=== PATIENT | female | born 1970 | race Caucasian/White ===

== ENCOUNTER → 2016-05-20 | Outpatient (CLI) | payer MEDICAID ==
[~2016-05-20] MED LIST: NS 100 ML IV 100 ML IV ONE
--- NOTE | 2016-05-20 16:51 | CT ---
HISTORY: Peripheral arterial disease Study: CT angiography with bilateral lower extremity runoff with and without contrast Comparison: None Technique: Multiple axial images of the abdomen and pelvis were obtained from the mesenteric vasculature to the plantar surface of the feet both prior to and after the administration of IV contrast. 3D reconstr uctions were performed utilizing radial maximum intensity projection imaging. Dose reduction technEntigo ues including Automated Exposure Control (AEC) and adjustment of mA and kV were utilized. Findings: The visualized solid organs and bowel are unremarkable. The gallbladder is removed. Normal appendix. No free air or free fluid. The urinary bladder is unremarkable. The soft tissues are intact. Abdominal aorta: There is multifocal plaque within the aortic wall without significant stenosis iden tified. No evidence of aneurysm. External iliac arteries: There is moderate plaque in the bilateral common iliac arteries without sig nificant stenosis identified. Common femoral arteries: No significant stenosis identified. Superficial femoral arteries: No significant stenosis identified. Popliteal arteries: No significant stenosis identified. Tibial vasculature: No significant stenosis identified. The left posterior tibial artery is diminuti ve in caliber. The left peroneal artery is relatively large in gives off a branch in the distal calf that becomes the posterior tibial artery at the ankle. IMPRESSION: 1. Moderate aortoiliac atherosclerotic disease without evidence of aneurysm or significant stenosis. 2. Patent 3 vessel runoff to the right ankle. 3. There is variant anatomy on the left with a very diminutive posterior tibial artery and enlarged left peroneal artery which eventually gives off a branch becoming the posterior tibial artery at the ankle. No significant stenosis identified. Reported By:
== END ==
LOC: RAD 09:24
PROVIDERS: ATTEND Nurse Practitioner Family
DX: I77.89 Other specified disorders of arteries and arterioles (principal)
CPT/HCPCS: 73706; A4222

== ENCOUNTER → 2016-09-17 | Outpatient (CLI) | payer MEDICAID ==
--- NOTE | 2016-09-17 11:26 | RAD ---
Three views of the right shoulder Indication: Shoulder pain. Findings: There is degenerative change or the distal right acromion. Glenohumeral joint alignment an d joint spaces are maintained. No displaced right-sided rib fracture. No localizing soft tissue swel ling. Impression: No acute fracture or dislocation within the right shoulder. Mild osteoarthrosis of the right AC joint. Reported By:
== END ==
LOC: RAD 11:00
PROVIDERS: ATTEND Nurse Practitioner Family
DX: M25.511 Pain in right shoulder (principal)
CPT/HCPCS: 73030

== ENCOUNTER → 2016-11-20 | Outpatient (CLI) | payer MEDICAID ==
--- NOTE | 2016-11-25 12:33 | MRI ---
MRI right shoulder without contrast Indication: Shoulder pain and stiffness Technique: Multiplanar, multisequence imaging of the right shoulder without IV contrast administratio n. Findings: The supraspinatus, infraspinatus and subscapularis muscles and tendons are normal. No muscl e atrophy. Teres minor is normal. The intra-articular long head biceps tendon is intact however demon strates intermediate signal within the intra-articular portion to the biceps labral anchor. No signif icant fluid within the biceps tendon sheath to suggest tenosynovitis. The superior labrum demonstrate s abnormal morphology and increased signal seen on coronal image 7 which propagates into the anterior superior labrum. The posterior inferior rim is intact. There is truncation of the anterior labrum re presenting tear. Mild glenohumeral articular cartilage thinning without full-thickness chondral loss. Tiny subcortical cyst within the humeral head footplate. There is moderate osseous and ossesous hypertrophic change o f the AC joint however there is no definite mass effect on the adjacent supraspinatus muscle. The dis estella acromion is type 1. Trace amount of subacromial, subdeltoid bursal fluid. The inferior glenohumer al ligament intact. Impression: 1.Intermediate increased signal and abnormal morphology of the superior labrum extending to the anter ior superior and anterior labrum does not appear to represent a congenital sulcus or foramen and like ly represents nondisplaced labral tear. Abnormal signal extends into the intra-articular long head bi ceps tendon at the biceps labral anchor consistent with either tendinopathy or chronic split thicknes s tear. 2. Rotator cuff is normal. 3. Moderate osteoarthrosis AC and mild osteoarthrosis of the right glenohumeral joints. 4. Small amount subacromial, subdeltoid bursal fluid, clinical correlation is needed for exclusion of bursitis. Reported By:
--- NOTE | 2016-11-25 12:43 | MRI ---
STUDY: MRI OF THE LUMBAR SPINE HISTORY: Chronic low back pain. Comparison: None. Technique: Multiplanar multi-sequence MRI of the lumbar spine was obtained. Sagittal T1, sagittal T2 , T2 STIR images, axial T1, and axial T2 images were obtained. Findings: Vertebral body heights and alignment are within normal limits. Intervertebral disk spaces are fairly well preserved. Marrow signal is age-appropriate. The conus medullaris is normal in appearance termin ating at the level of L1. T12 -- L1: Normal. L1 -- L2: Normal. L2 -- L3: Normal. L3 -- L4: There is a shallow disc bulge, bilateral facet arthropathy and ligamentum flavum infolding. The central canal and neural foramina are adequate. L4 -- L5: There is a shallow disc bulge, bilateral facet arthropathy and ligamentum flavum infolding. The combination of these findings results in mild spinal stenosis. The neural foramina are adequate. L5 -- S1: There is a shallow disc bulge, bilateral facet arthropathy and ligamentum flavum infolding. The central canal and neural foramina are adequate. IMPRESSION: 1. Multilevel lumbar spondylosis, most notable at L4/5. 2. Mild spinal stenosis at L4/5. Reported By:
== END | disposition home or self-care (01) | DRG 556 ==
LOC: RAD 12:36
PROVIDERS: ATTEND Internal Medicine
DX: R29.898 Other symptoms and signs involving the musculoskeletal system (principal); M54.5 Low back pain; M25.511 Pain in right shoulder; M47.896 Other spondylosis, lumbar region; M48.061 Spinal stenosis, lumbar region without neurogenic claudication
CPT/HCPCS: 72148; 73221